=== PATIENT | female | born 1970 | race American Indian/Alaskan Native ===

== ENCOUNTER 2017-07-13 07:12 | Day surgery (SDC) | payer OTHER ==
[~2017-07-13] VITALS: Ht 167.6 cm; Wt 75.0 kg
[~2017-07-13 07:12] MED LIST: ACET500; ALBU90OI; ALBU90OI INH; ALBU90OI61 INH; AZIT250 PO; BELPHEER; BELPHEER PO; Baclofen10 MG PO; CHLO500 PO; CYCL10 PO; Crutch1 EACH MISC; DIAZ5 PO; DOXY100 PO; DULO30; DULO30 PO; DULO60 PO; ESTMED1.5T PO; ESTR1; ESTROGEL; ESTROGEN PATCH; FAMO20 PO; HYDACE5 PO; HYDCHL25 PO; HYDMOR2 PO; HYDR-86 PO; Hydrocodone-Ap1 EA23 PO; KETO10; MELO7.5 PO; NAPR500 PO; NAPR550 PO; Norco 10-325 T1 EACH PO; OMEP20ER PO; OMEP40CA12 PO; OXYACE5T PO; PANT20 PO; PANT40 PO; PRED20 PO; PROC25S PR; PROGESTERONE; PROM25 PO; PROP60 PO; Percocet 5-3251 EACH PO; Prednisone20 MG PO; RXCYCL10 PO; RXHYDACE PO; RXONDA4ODT MM; RXOXYACE PO; RXPHEN200 PO; RXTRAM50 PO; Robaxin500 MG PO; SUCR1; SUCR1 PO; SULTRIDS PO; TRAM50 PO; Ultram50 MG PO; VENL75ER PO; ZYRTEC10 M3 PO; Zofran Odt4 MG SL; Zofran Odt8 MG SL; [UNRECOGNIZED DRUG - REMARK]; [UNRECOGNIZED DRUG - REMARK]
== END 2017-07-13 10:26 | disposition home or self-care (01) ==
LOC: ORSCSDS 07:12
PROVIDERS: Orthopaedic Surgery
PROC: 0RBL0ZZ Excision of Right Elbow Joint, Open Approach (ICD-10-PCS; principal; 2017-07-13 08:30)
DX: M77.11 Lateral epicondylitis, right elbow (principal); F17.210 Nicotine dependence, cigarettes, uncomplicated; Z79.899 Other long term (current) drug therapy
CPT/HCPCS: J0171; J0690; J1100; J1885; J2250; J2405; J3010; J7120

== ENCOUNTER → 2018-12-05 | Outpatient (CLI) | payer OTHER ==
[2018-12-05 19:33] LABS: BASOPHILS ABSOLUTE AUTO 0.07 K/mm3 (0.00-0.23); BASOPHILS PERCENT AUTO 1 % (0-2); EOSINOPHILS ABSOLUTE AUTO 0.17 K/mm3 (0.00-0.68); EOSINOPHILS PERCENT AUTO 2 % (0-6); Hematocrit 36.8 % (33.0-51.0); Hemoglobin 11.8 g/dL (11.5-16.0); IMMATURE GRAN ABSOLUTE AUTO 0.02 K/mm3 (0.00-0.10); IMMATURE GRAN PERCENT AUTO 0 % (0-1); LYMPHOCYTES ABSOLUTE AUTO 4.04 K/mm3 (0.84-5.20); LYMPHOCYTES PERCENT AUTO 37 % (21-46); MONOCYTES ABSOLUTE AUTO 0.75 K/mm3 (0.16-1.47); MONOCYTES PERCENT AUTO 7 % (4-13); Mean Corpuscular HGB 27.7 pg (26.0-34.0); Mean Corpuscular HGB Conc 32.1 g/dL (31.5-36.5); Mean Corpuscular Volume 86 fL (80-100); Mean Platelet Volume 11.5 fL (9.1-12.4); NEUTROPHILS ABSOLUTE AUTO 5.85 K/mm3 (1.96-9.15); NEUTROPHILS PERCENT AUTO 54 % (41-73); Platelet Count 380 K/mm3 (150-400); RDW Standard Deviation 55.8 fL (35.1-46.3); Red Blood Cell Count 4.26 M/mm3 (3.80-5.20)
== END | disposition home or self-care (01) ==
LOC: LAB SHORT 16:35 → LAB 16:35
PROVIDERS: Internal Medicine Rheumatology
DX: M06.9 Rheumatoid arthritis, unspecified (principal)
CPT/HCPCS: 84450; 85025; 85651